=== PATIENT | female | born 1980 | race Caucasian/White ===

== ENCOUNTER 2017-07-25 00:30 | Observation (INO) | payer BC ==
[2015-11-29 17:05] VITALS: Ht 165.1 cm; Wt 71.7 kg
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
[2017-07-25] VITALS (7 sets, daily range): BP systolic 101–114; BP diastolic 57–81
[~2017-07-25] VITALS: Ht 165.1 cm; Wt 71.7 kg
[~2017-07-25 00:30] MED LIST: BACDS PO; BIRTH CONTROL PILL; CLI150 PO; GUAI50GR PO; IBU600 PO; IBUP800T37 PO; PER PO; [UNRECOGNIZED DRUG - CODE] PO
[2017-07-25] MEDS ORDERED: FAMOTIDINE 20 MG TAB PO ONE (06:30)
[2017-07-25] MEDS ORDERED: LIDOCAINE/SOD BICARB 8.4% SYR ID ONE (06:30)
[2017-07-25] MEDS ORDERED: NORMOSOL R SOLN(*) 1000 ML BAG 1,000 ML IV PRN (06:30)
[2017-07-25] MEDS ORDERED: MIDAZOLAM 2 MG/2 ML VIAL IVP PRN (06:30)
[2017-07-25] MEDS ORDERED: CELECOXIB 200 MG CAP PO ONE (06:30)
[2017-07-25] MEDS ORDERED: cefOXitin/DEX(*) 2GM/50ML PREM 50 ML IVPB ONE (06:30)
[2017-07-25] MEDS ORDERED: HYDROmorphone HCL 2 MG TAB PO ONE (06:30)
[2017-07-25] MEDS ORDERED: PHENAZOPYRIDINE 200 MG TAB PO ONE (06:30)
[2017-07-25 06:56] LABS: PLATELET COUNT, AUTOMATED 240 K/uL (150-450)
[2017-07-25] MEDS ORDERED: MORPHINE PF 5 MG/10 ML AMP ONE (07:12)
[2017-07-25] MEDS ORDERED: fentaNYL CITR 100 MCG/2 ML AMP ONE ×3 (07:13→10:03)
[2017-07-25] MEDS ORDERED: PROPOFOL EMUL(*) 10MG/ML 20 ML 20 ML ONE (07:14)
[2017-07-25] MEDS ORDERED: LIDOCAINE 2% IV 100 MG/5ML SYR ONE (07:14)
[2017-07-25] MEDS ORDERED: ROPIVACAINE 0.2% 20 ML VIAL ONE (07:15)
[2017-07-25] MEDS ORDERED: ONDANSETRON 4 MG/2 ML VIAL ONE (07:41)
[2017-07-25] MEDS ORDERED: DEXAMETHASONE SOD 4 MG/ML VIAL ONE (07:41)
--- NOTE | 2017-07-25 07:51 | Post Operative Note ---
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
[2017-07-25] MEDS ORDERED: FAMOTIDINE(*) 20MG/50ML PREMIX 50 ML IVPB PRN (09:28)
[2017-07-25] MEDS ORDERED: DLR(*) 1000 ML BAG 1,000 ML IV PRN (09:28)
[2017-07-25] MEDS ORDERED: PROMETHAZINE 25 MG/ML 1 ML AMP IVP PRN (09:30)
[2017-07-25] MEDS ORDERED: ONDANSETRON 4 MG/2 ML VIAL IVP PRN (09:30)
[2017-07-25] MEDS ORDERED: METOCLOPRAMIDE 10 MG/2 ML SDV IVP PRN (09:30)
[2017-07-25] MEDS ORDERED: IBUP800T37 PO (09:37)
[2017-07-25] MEDS ORDERED: OXYC-373 PO (09:37)
--- NOTE | 2017-07-25 09:38 | OB/GYN Discharge Summary ---
Discharge Summary Reason for Hosp/Final Diag: (1) Status post vaginal hysterectomy Hospital Course & Plan: TVH PERFORMED NO COMPLICATIONS, ON DAY 1 PAIN CONTROLLED TOLERATING DIET AND ACTIVITY Lates Vital Signs Vital Signs Date Time Temp Pulse Resp B/P (MAP) Pulse Ox O2 Delivery O2 Flow Rate FiO2 07/25/17 06:00 97.3 60 16 114/69 (84) 97 Room Air Weight (Pounds): 158 Result Diagram: 07/25/17 0639 Condition: Improved Discharge: Home, Self Correction Meds Active Scripts Oxycodone Hcl/Acetaminophen (OXYCODONE-ACETAMINOPHEN 5-325) 1 Each Tablet, 1-2 EACH PO Q4H Y for PAIN, #30 TAB 0 Refills TAKE 1-2 TABLET NEEDED FOR PAIN - NO CLOSER THAN EVERY 4 HOURS. Prov:SCOTT QUIROS MD 07/25/17 Ibuprofen (IBUPROFEN) 800 Mg Tablet, 1 TAB PO Q8H, #30 TAB 0 Refills Take with food every 8 hours. Prov:SCOTT QUIROS MD 07/25/17 Discontinued Scripts Ibuprofen (IBUPROFEN) 800 Mg Tablet, 800 MG PO Q8H@06,14,22, #30 TAB 0 Refills Prov:REKHA BERRIOS MD 12/01/15 Follow up with: Dr. Quiros [phone] Follow up in: 6 wks PP or PO, 2 wks PO Discharge Diet: As Tolerates Discharge Activity: Pelvic Rest Copies to: SCOTT QUIROS MD, JOHN MD Jul 25, 2017 09:38
[2017-07-25] MEDS ORDERED: NALBUPHINE HCL 10 MG/ML AMP IVP PRN (10:25)
[2017-07-25] MEDS ORDERED: NALOXONE HCL 0.4 MG/ML VIAL IVP PRN (10:25)
[2017-07-25] MEDS ORDERED: diphenhydrAMINE 25 MG CAP PO PRN (10:25)
[2017-07-25] MEDS: SIMETHICONE 80 MG CHEW CHEW SCH ×3 (13:12→21:13)
--- NOTE | 2017-07-25 18:40 | OB/GYN Progress Note ---
OB Subjective Progress Notes Subjective pain controlled tolerating diet and activity GI: NEG Nausea, NEG Vomiting Pain: Mild OB Objective Physical Exam Vital Signs Date Time Temp Pulse Resp B/P (MAP) Pulse Ox O2 Delivery O2 Flow Rate FiO2 07/25/17 16:25 98.7 53 16 101/72 (82) 100 Nasal Cannula 1.0 Intake and Output 07/26/17 07:00 Intake Total 3263 ml Output Total 2500 ml Balance 763 ml Intake Oral 850 ml IV Total 2413 ml Output Urine Total 2500 ml Cardiovascular: Regular Rate and Rhythm Respiratory: Clear to Auscultation Abdomen: Soft, Non-Tender, Non-Distended, Bowel Sounds Present Extremities: No Edema Result Diagram: 07/25/17 0639 Assessment and Plan 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
--- NOTE | 2017-07-25 21:06 | OPERATIVE REPORT 1 ---
EVENT DATE: July 25, 2017 SURGEON: Noel Quiros MD ANESTHESIOLOGIST: Kishor Granados MD ANESTHESIA: General. WATER SYSTEMS DESIGNER: Tono Salas MD PREOPERATIVE DIAGNOSES 1. Menorrhagia. 2. 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 POSTOPERATIVE DIAGNOSES 1. Menorrhagia. 2. 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 PROCEDURES PERFORMED 1. Total vaginal hysterectomy. 2. Bilateral salpingectomy. 3. Modified Paul culdoplasty. 4. Diagnostic cystoscopy. COMPLICATIONS None. FLUIDS Normosol 1300 mL IV ESTIMATED BLOOD LOSS 100 mL INDICATIONS The patient is a 36-year-old female with a history of LEEP for HGSIL and abnormal bleeding. After discussion of risks and alternatives, the patient desired to proceed with hysterectomy. FINDINGS Uterus 6 x 5 cm. Normal ovaries bilaterally. She had bilateral ureteral jets at the end of the procedure and normal-appearing bladder. DESCRIPTION OF PROCEDURE After informed consent was obtained, the patient was taken to the operating room with the IV running, placed in a sitting position where intrathecal anesthetic was obtained without difficulty. She was then placed in the supine position where general anesthesia was obtained without difficulty. She was then placed in the [facility] and examined under anesthesia with the above findings. A Britton catheter was placed. She was prepped and draped in the usual fashion. A short weighted speculum was placed into the vagina. The cervix was grasped with Brianda clamps. The cervix was circumscribed with the Bovie. The posterior cul-de-sac was entered sharply with Dukes scissors. A long weighted speculum replaced the short weighted speculum and placed in the posterior cul-de-sac. The uterosacral ligaments were clamped bilaterally with Natividad clamps, transected, suture ligated with 0 Vicryl, and tagged for later use in the Paul culdoplasty. Metzenbaum scissors were used to dissect the vagina away from the endocervical fascia. The cardinal ligaments were identified bilaterally, clamped with Natividad clamps, transected, and suture ligated with 0 Vicryl. The anterior cul-de-sac was then entered sharply with Metzenbaum scissors. The right-angle retractor was placed into the anterior cul -de-sac, and anterior compartment placement was confirmed. The uterine arteries were then serially clamped with Natividad clamps, transected, and suture ligated on the left. The uterus was then inverted, and the cornual region was clamped with Natividad clamps bilaterally, transected, and suture ligated with 0 Vicryl. The uterus was passed from the pelvis. The right tube was then grasped with [place] clamps. The Natividad clamp was clamped across the base and the tube transected. The pedicle was then suture ligated with 0 Vicryl. The same procedure was then performed on the left, grasping the tube with [place] clamps. The tube was then clamped with Natividad clamps, transected, suture ligated with 0 Vicryl, and tagged. Irrigation was performed. There was some oozing from the vaginal cuff. This was made hemostatic with [id number] sutures on the right and the left with 0 Vicryl. After hemostasis was assured, the peritoneum was grasped at the 12 o'clock position and closed in a pursestring fashion in a counterclockwise manner down to the right uterosacral ligament. The uterosacral ligaments were plicated to the ipsilateral portion of the vaginal lining on the right and the left. A short weighted speculum was then placed. The posterior cul-de-sac was then pursestring sutured, completing the Paul culdoplasty and exiting out the posterior wall of the vagina. The peritoneal suture was then closed in a pursestring fashion in a counterclockwise manner. Once this was performed, the vaginal cuff was then closed in a running locked fashion down to the level of the uterosacrals. The uterosacrals were plicated in the midline. Then, the posterior cuff was then closed in a running locked fashion with 2-0 Vicryl. irrigation was performed. Hemostasis was noted. The Paul sutures were then tied, elevating the posterior cuff nicely into the vaginal vault. Cystoscopy was then performed. The Britton catheter was removed. No injuries were noted within the bladder. Bilateral ureteral jets could be observed with Pyridium-stained urine. The bladder was then drained. The Britton catheter was replaced. The patient was taken out of the [facility], awakened from anesthesia, and taken to the recovery room in stable condition. [facility]OLA
[2017-07-25] MEDS: FAMOTIDINE 20 MG TAB PO SCH (21:13)
[2017-07-25] MEDS: CELECOXIB 200 MG CAP PO SCH (21:13)
[2017-07-25] MEDS: DOCUSATE CALCIUM 240 MG CAP PO SCH (21:13)
[2017-07-26 00:58] VITALS: BP 104/61
[2017-07-26 03:59] VITALS: BP 108/70
[2017-07-26 06:47] LABS: PLATELET COUNT, AUTOMATED 212 K/uL (150-450)
[2017-07-26 08:06] VITALS: BP 109/74
--- NOTE | 2017-07-26 08:38 | OB/GYN Progress Note ---
OB Subjective Progress Notes Subjective Pain controlled, Tolerating diet and activity. GI: NEG Nausea, NEG Vomiting, NEG Flatus : Voiding Well Pain: Mild OB Objective Physical Exam Vital Signs Date Time Temp Pulse Resp B/P (MAP) Pulse Ox O2 Delivery O2 Flow Rate FiO2 07/26/17 08:06 98.7 53 18 109/74 (86) 100 Room Air 07/25/17 16:25 1.0 Intake and Output 07/27/17 07:00 Intake Total 120 ml Output Total 240 ml Balance -120 ml Other 120 ml Output Urine Total 100 ml Post Void Residual 40 ml Other 100 ml Bladder Scan Volume Amount 11-30 ml # Voids 1 Cardiovascular: Regular Rate and Rhythm Respiratory: Clear to Auscultation Abdomen: Soft, Non-Tender, Non-Distended, Bowel Sounds Present Extremities: No Edema Result Diagram: 07/26/17 0603 Assessment and Plan 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 Voiding, await GI function return. SCOTT CHAVEZ MD Jul 26, 2017 08:38
[2017-07-26] MEDS: FAMOTIDINE 20 MG TAB PO SCH (08:53)
[2017-07-26] MEDS: CELECOXIB 200 MG CAP PO SCH (08:53)
[2017-07-26] MEDS: DOCUSATE CALCIUM 240 MG CAP PO SCH (08:53)
[2017-07-26] MEDS: SIMETHICONE 80 MG CHEW CHEW SCH ×2 (08:53→12:33)
[2017-07-26] MEDS ORDERED: BISACODYL 10 MG SUPP PR PRN (08:55)
[2017-07-26] MEDS ORDERED: INFLUENZA VIRUS VAC 0.5 ML SYR IM ONLY ONE (09:30)
[2017-07-26 12:34] VITALS: BP 132/89
== END 2017-07-26 07:48 | disposition home or self-care (01) ==
LOC: OR 00:30 → PED 10:35
PROVIDERS: ADMIT Obstetrics & Gynecology; ATTEND Obstetrics & Gynecology
DX: N92.0 Excessive and frequent menstruation with regular cycle (principal); Z85.41 Personal history of malignant neoplasm of cervix uteri
CPT/HCPCS: 36415; 58262; 84703; 85025; 88307; G0378; J0694; J1100; J2001; J2250; J2270; J2405; J2704; J2795; J3010

== ENCOUNTER → 2018-05-20 | Outpatient (REF) | payer BC ==
[2015-11-29 17:05] VITALS: BMI 27.9
[~2018-05-20] MED LIST changes: +OXYC-373 PO
[2018-05-20 18:21] LABS: PLATELET COUNT, AUTOMATED 280 K/uL (150-450)
== END ==
LOC: ZZSENDIN 17:44
PROVIDERS: ATTEND Nurse Practitioner Family
DX: R31.9 Hematuria, unspecified (principal); B96.20 Unspecified Escherichia coli [E. coli] as the cause of diseases classified elsewhere; R10.9 Unspecified abdominal pain
CPT/HCPCS: 82040; 82247; 82310; 82374; 82435; 82565; 82947; 83540; 84075; 84132; 84155; 84295; 84450; 84460; 84520; 85025; 87077; 87088; 87186

== ENCOUNTER → 2018-05-22 | Outpatient (CLI) | payer BC ==
[2015-11-29 17:05] VITALS: BMI 27.9
--- NOTE | 2018-05-22 10:49 | RADIOLOGY IMAGING REPORT ---
FAC[place] [facility] [place] NAME: Katherin Brewster : 1980 MR: [id number] V: [id number] EXAM DATE: ORDERING PHYSICIAN: BRYAN STRINGER TECHNOLOGIST: [facility] Patient: Katherin Brewster : 1980 Visit/Account:[id number] Date of Sevice: 05/22/2018 CT ABDOMEN WITHOUT CONTRAST CLINICAL INFORMATION: Upper abdomen pain, under sternum and breast x1 week TECHNIQUE: Axial CT images were obtained through the abdomen without administration of IV contrast. 800 mL of water was administered as an oral contrast. Reformatted coronal and sagittal images were also obtained.Dose Lowering Technique One of the following dose optimization techniques was utilized in the performance of this exam: Autom ated exposure control; adjustment of the mA and/or kV according to the patient's size; or use of an i terative reconstruction technique. Specific details can be referenced in the facility's radiology C T exam operational policy. COMPARISON: None available. FINDINGS: Lower lung vogt: Limited views lower lung field are unremarkable. Evaluation of the solid organs of the abdomen is limited without IV contrast. Liver: No focal parenchymal abnormality of the liver. Biliary: Gallbladder appears unremarkable as well as the intra and extra hepatic biliary system. Pancreas: Normal appearance. Spleen: Normal appearance. Adrenal glands: Unremarkable. Kidneys / retroperitoneum: No evidence of nephrolithiasis or hydronephrosis Bowel / peritoneum / mesenteries: Stomach is moderately distended with water as per the oral contrast protocol. There is mild wall thickening of several loops of proximal jejunum. Possibility of focal enteritis is not excluded Lymph node assessment: No pathologic adenopathy identified. Vessels: No significant atherosclerotic calcification seen throughout a nonaneurysmal abdominal aorta and branches. Musculoskeletal / Body wall: No acute or aggressive osseous abnormality. IMPRESSION: 1. There is mild thickening of several loops of proximal jejunum which may be related to a focal ent eritis. Clinical correlation needed Report Dictated By: Fransisca Flor MD at 05/22/2018 10:39 AM Report E-Signed By: Fransisca Flor MD at 05/22/2018 10:45 AM WSN:[email or web address]
== END ==
LOC: CT 07:28
PROVIDERS: ATTEND Nurse Practitioner Family
DX: R10.9 Unspecified abdominal pain (principal)
CPT/HCPCS: 74150